=== PATIENT | male | born 1985 | race Caucasian/White ===

== ENCOUNTER 2019-12-23 13:17 | Outpatient (REF) | payer OTHER, SELFPAY | END 2019-12-23 13:18 | disposition home or self-care (01) | LOC: HO.HMGCLDS 13:17 | PROVIDERS: Visit Provider Internal Medicine | DX: Z20.828 Contact with and (suspected) exposure to other viral communicable diseases (principal) | CPT/HCPCS: 36415; 87635 ==

== ENCOUNTER → 2021-12-23 14:48 | Outpatient (BNVA) | payer SELFPAY | PROVIDERS: PCP Nurse Practitioner Family; Visit Provider Internal Medicine | DX: Z02.79 Encounter for issue of other medical certificate (principal) ==

== ENCOUNTER 2022-12-22 08:53 | Outpatient (AMB) | payer OTHER, SELFPAY ==
[2022-12-22 08:58] VITALS: BP 118/86; PULSE 70; O2SAT 98; BMI 22.4
--- NOTE | 2022-12-22 08:58 | MHC.PC.OV ---
Vital Signs 12/22/22 08:58 Height 6 ft Weight 165 lb 6 oz BMI 22.4 BP 118/86 Blood Pressure Location Rt brachial Position Sitting Pulse 70 Pulse Source Pulse Oximeter Pulse Oximetry (%) 98 Oxygen Delivery Method Room Air Intake Visit Reasons: Physical Exam Allergies No Known Allergies Allergy (Verified 12/22/22 09:23) Medication List - Last Reconciled 12/22/22 by ROMY López citalopram 20 mg PO DAILY Tobacco use date assessed: 12/22/22 Dental Screening Dental Screen Date: 12/22/22 Did you have a dental visit in the last 12 months?: Yes Did you have a dental problem in the last 6 months where you did not have access to dental care?: No Was dental information given to patient?: Patient has dentist HPI Physical Exam HPI Details Pt is here for a PE. Will order labs. [facility] Social History Housing: House Alcohol intake: current Alcohol intake frequency: a few times a month Patient Tobacco Use Status: Never used Tobacco e-Cigarette/Vaping Use: Currently Using (thc) Second Hand Smoke Exposure: No service: No Current occupational status: employed Current occupation: [employer] Current occupational exposures/hazards: Yes Cognitive needs: No Hearing needs: No Vision needs: No Review of Systems Const Denies chills and Denies fever(s) Eyes Denies blurry vision ENT Denies vertigo, Denies dizziness and Denies sore throat Card Denies chest pain at rest, Denies chest pain with activity, Denies diaphoresis, Denies dyspnea and Denies dyspnea on exertion Resp Denies cough, Denies dyspnea, Denies dyspnea on exertion and Denies wheezing GI Denies abdominal pain, Denies melena, Denies hematochezia, Denies constipation, Denies diarrhea and Denies loose stools Denies hematuria Musc Denies numbness and Denies tingling Skin/Breast Denies lesions Neuro Denies vertigo, Denies dizziness, Denies numbness and Denies tingling Psych Denies anxiety, Denies depression, Denies homicidal ideation, Denies suicidal ideation and Denies other (substance abuse) Aller/Immun Denies wheezing Physical exam (Primary Care) Vital Signs: Last Vital Signs Pulse 70 12/22/22 08:58 BP 118/86 12/22/22 08:58 Pulse Ox 98 12/22/22 08:58 Oxygen Delivery Method Room Air 12/22/22 08:58 BMI result Body Mass Index 22.4 Tobacco/Smoking Status: Tobacco use Status Tobacco use date assessed 12/22/22 12/22/22 09:04 Patient Tobacco Use Status Never used Tobacco 12/22/22 09:04 e-Cigarette/Vaping Use Currently Using (thc) 12/22/22 09:04 Const General: cooperative Nutritional Appearance: well nourished Orientation/consciousness: patient oriented x3 HENMT Other: left parietal region with fibroma Head: Yes normocephalic and Yes atraumatic Ears: TM's normal bilaterally Eyes General: appearance normal, both eyes and all related structures Alignment and Position: alignment normal and position normal Neck Neck: Yes normal visual inspection and Yes no lymphadenopathy Thyroid: Thyroid normal Resp Effort & Inspection: normal respiratory effort Auscultation: clear to auscultation bilaterally Cardio Rate: regular rate Rhythm: regular rhythm Heart sounds: S1 normal heart sound present, S2 normal heart sound present and no murmurs GI Palpation (GI): Soft to palpation and nontender Auscultation: normal bowel sounds Male General Exam: Yes normal external exam Penis: normal penis Scrotum: scrotum normal, testes descended bilaterally and no inguinal hernias Testes: no testicular mass Skin Rashes: no rashes Neuro General: patient oriented x3, moves all extremities, no focal motor deficits and deep tendon reflexes 2+ bilaterally Romberg Test: Negative Psych Appearance: grossly normal Mental Status: mental status grossly normal Speech and movement: Normal speech and movement present Affect: normal affect Attitude: cooperative Thought process: Normal thought process present Thought content: Normal thought content present Insight: Good insight present (Psych) Judgement: Good judgement present (Psych) Assessment and Plan Assessment & Plan (1) Physical exam: Code(s): Z00.00 - Encounter for general adult medical examination without abnormal findings Plan: Labs ordered Plan The patient agreed to the use of a medical record technician for this encounter. Scribed for ROMY Alexis by Gemma No medical record technician, on 12/22/2022 at 09:25 EST Orders: Orders Complete Blood Count Auto Diff Today Z00.00 - Encounter for general adult medical examination without abnormal findings TSH reflex Free T4 Today Z00.00 - Encounter for general adult medical examination without abnormal findings Lipid Panel Today Z00.00 - Encounter for general adult medical examination without abnormal findings Comprehensive [place]. Panel Fast Today Z00.00 - Encounter for general adult medical examination without abnormal findings UA CC w/rflx Micro + Cult Today Z00.00 - Encounter for general adult medical examination without abnormal findings Coding Level of Care Code Est Pt Prev Care 18-39y(86421) Diagnoses Physical exam Z00.00
== END 2022-12-22 09:36 | disposition home or self-care (01) ==
PROVIDERS: PCP Nurse Practitioner Family; Visit Provider Nurse Practitioner Family
DX: Z00.00 Encounter for general adult medical examination without abnormal findings (principal)
CPT/HCPCS: 99395

== ENCOUNTER 2023-12-11 07:39 | Outpatient (REF) | payer OTHER, SELFPAY ==
[2023-12-11 09:59] LABS: MANUAL DIFF FLAG NO
[2023-12-11 10:02] LABS: Appearance Urine Clear; Color Urine Yellow; Glucose Urine UA Negative (Negative); Leukocyte Esterase Urine Negative (Negative); Nitrite Urine Negative (Negative); Urine Blood Negative (Negative); Urine Ketones Negative (Negative); Urine Protein Negative (Neg-Trace)
[2023-12-11 10:13] LABS: Basophils Percent Auto 0.3 % (0-2); Eosinophils Absolute Auto 0.1 X10*3/uL (0.0-0.4); Eosinophils Percent Auto 1.3 % (0-4); Hematocrit 44.1 % (42.0-52.0); Hemoglobin 15.6 g/dl (14.0-18.0); Imm Gran Abs Auto 0.01 X10*3/uL (0.00-0.03); Imm Gran Pct Auto 0.3 % (0.0-0.4); Lymphocytes Absolute Auto 1.5 X10*3/uL (1.2-4.9); Lymphocytes Percent Auto 38.2 % (20-40); Mean Corpuscular HGB Conc 35.4 g/dl (31.0-36.0); Mean Corpuscular Hemoglobin 31.6 pg (27.0-33.0); Mean Corpuscular Volume 89.5 fL (80.0-98.0); Mean Platelet Volume 9.4 fL (9.4-12.4); Monocytes Absolute Auto 0.4 X10*3/uL (0.1-1.2); Monocytes Percent Auto 10.2 % (2-11); Neutrophils Absolute Auto 1.9 x10*3/uL (2.0-8.3); Neutrophils Percent Auto 49.7 % (45-73); Platelet Count 210 X10*3/uL (160-400); Red Blood Count 4.93 X10*6/uL (4.60-5.80); Red Cell Distribution Width 12.3 % (11.0-16.0); White Blood Count 3.8 X10*3/uL (4.8-10.8)
[2023-12-11 10:27] LABS: Alanine Aminotransferase 8 U/L (0-40); Albumin Level 4.3 g/dL (3.5-5.0); Alkaline Phosphatase 54 U/L (39-117); Anion Gap 9 (12-20); Aspartate Amino Transferase 18 U/L (5-37); Blood Urea Nitrogen 11 mg/dL (9-16); Calcium 9.2 mg/dL (8.4-10.2); Carbon Dioxide 30 mmol/L (22-29); Chloride 106 mmol/L (96-108); Cholesterol 160 mg/dL (<200); Estimated Glomerular Filt Rate > 60; Glucose Fasting 87 mg/dL (60-99); HDL Cholesterol 51 mg/dL (>40); LDL Cholesterol Calculated 99 mg/dL (<100); Potassium 3.9 mmol/L (3.3-5.1); Sodium 141 mmol/L (135-145); Triglycerides 52 mg/dL (<150)
[2023-12-11 10:49] LABS: TSH reflex Free T4 1.75 uIU/mL (0.32-4.0)
== END 2023-12-11 07:40 | disposition home or self-care (01) ==
LOC: HO.HMGCLDS 07:39
PROVIDERS: PCP Nurse Practitioner Family; Visit Provider Nurse Practitioner Family
DX: Z00.00 Encounter for general adult medical examination without abnormal findings (principal); D72.819 Decreased white blood cell count, unspecified
CPT/HCPCS: 36415; 80053; 80061; 81003; 84443; 85025

== ENCOUNTER → 2023-12-16 09:13 | Outpatient (BNVA) | payer SELFPAY | PROVIDERS: PCP Nurse Practitioner Family; Visit Provider Physician Assistant | DX: Z02.79 Encounter for issue of other medical certificate (principal) ==

== ENCOUNTER 2024-01-11 10:18 | Outpatient (AMB) | payer OTHER, SELFPAY ==
[2024-01-11 10:25] VITALS: BP 128/82; PULSE 76; O2SAT 98; BMI 23.5
--- NOTE | 2024-01-11 10:25 | A.OFFPC_ITS ---
Vital Signs 3 01/11/24 10:25 Height 6 ft Weight 173 lb 4 oz BMI 23.5 BP 128/82 Blood Pressure Location Rt brachial Position Sitting Pulse 76 Pulse Source Pulse Oximeter Pulse Oximetry (%) 98 Oxygen Delivery Method Room Air Intake Visit Reasons: Annual PE Intake Note: Pt is here today for his Annual PE Allergies No Known Allergies Allergy (Verified 01/11/24 11:23) Medication List - Last Reconciled 01/11/24 by ROMY López citalopram 20 mg PO DAILY Tobacco use date assessed: 01/11/24 Dental Screening Dental Screen Date: 01/11/24 Did you have a dental visit in the last 12 months?: Yes Did you have a dental problem in the last 6 months where you did not have access to dental care?: No Was dental information given to patient?: Patient has dentist HPI Annual PE 2 HPI0 Details Pt is here for a PE. Labs were already performed. Repeat CBC has been ordered due to leukopenia. Pt c/o increased anger/frustration. He does have a hx of anxiety and depression. Pt has a therapist previously but no longer does. Will have team speak with pt. Denies any SI and HI. [facility] Social History Housing: House Alcohol intake: current Alcohol intake frequency: a few times a month Patient Tobacco Use Status: Never used Tobacco e-Cigarette/Vaping Use: Currently Using (thc) Second Hand Smoke Exposure: No service: No Current occupational status: employed Current occupation: [employer] Current occupational exposures/hazards: Yes Cognitive needs: No Hearing needs: No Vision needs: No Questionnaire PHQ-9 Over the last 2 weeks, how often have you been bothered by any of the following problems? 1. Little interest or pleasure in doing things: several days 2. Feeling down, depressed, or hopeless: several days 3. Trouble falling or staying asleep, or sleeping too much: more than half the days 4. Feeling tired or having little energy: several days 5. Poor appetite or overeating: not at all 6. Feeling bad about yourself - or that you are a failure or have let yourself or your family down: several days 7. Trouble concentrating on things, such as reading the newspaper or watching television: not at all 8. Moving or speaking so slowly that other people could have noticed. Or the opposite - being so fidgety or restless that you have been moving around a lot more than usual: not at all 9. Thoughts that you would be better off or of hurting yourself in some way: not at all Total score: 6 Depression Screening Interpretation: Negative Depression Screening Done: Yes 36110 - PHQ-9 Billing: Yes (denies any SI or HI, john () to speak with pt. ) Source: Developed by Drs. Gray Humphrey, Terri Hairston, Jose Carlos Hunter and colleagues, with an educational alexandrea from [employer]. Thrive Questionnaire Date Thrive assessed: 01/11/24 I am a: Patient What is your living situation today?: I have a steady place to live Within the past 12 months, did the food you bought not last and you didn't have the money to get more?: Never true Within the past 12 months, did you worry whether your food would run out before you got money to buy more?: Never true Do you have trouble paying for medicines?: No Do you have trouble getting transportation to medical appointments?: No Do you have trouble paying your heating and electricity bill?: No Do you have trouble taking care of your child, family member or friend?: No Do you have trouble with day-to-day activities such as bathing, preparing meals, shopping, managing finances, etc.?: No Are you currently unemployed and looking for a job?: No Are you interested in more education?: No Please select the resources that you would like help with: None Currently or been in a relationship where the following occur: No concerns reported THRIVE Score: 0 AUDIT C Alcohol Use Questionnaire (AUDIT-C) 1. How often do you have a drink containing alcohol?: 4 or more times a week 2. How many drinks containing alcohol do you have on a typical day when you are drinking?: 1 or 2 3. How often do you have six or more drinks on one occasion?: Less than monthly Total Score: 5 Score Reviewed/Action Taken: Yes ZORA-7 AMB Questionnaire ZORA-7 Date ZORA - 7 assessed: 01/11/24 Feeling nervous, anxious, or on edge: 1 = Several days Not being able to stop or control worryin = Several days Worrying too much about different things: 1 = Several days Trouble relaxin = Several days Being so restless that it is hard to sit still: 1 = Several days Becoming easily annoyed or irritable: 1 = Several days Feeling afraid as if something awful might happen: 0 = Not at all Total ZORA-7 score (0-4 normal; 5-9 mild; 10-14 moderate; 15-21 severe): 6 Source: Developed by Drs. Gray Humphrey, Terri Hairston, Jose Carlos Hunter and colleagues, with an educational alexandrea from [employer]. ZORA-7 Assessment Billing ZORA-7 Assessment Tool: ZORA-7 Assessment 28192 Review of Systems Const Denies chills and Denies fever(s) Eyes Denies blurry vision ENT Denies vertigo, Denies dizziness and Denies sore throat Card Denies chest pain at rest, Denies chest pain with activity, Denies diaphoresis, Denies dyspnea and Denies dyspnea on exertion Resp Denies cough, Denies dyspnea, Denies dyspnea on exertion and Denies wheezing GI Denies abdominal pain, Denies melena, Denies hematochezia, Denies constipation, Denies diarrhea and Denies loose stools Denies hematuria Musc Denies numbness and Denies tingling Skin/Breast Denies lesions Neuro Denies vertigo, Denies dizziness, Denies numbness and Denies tingling Psych Denies anxiety, Denies depression, Denies homicidal ideation, Denies suicidal ideation and Denies other (substance abuse) Aller/Immun Denies wheezing Physical exam (Primary Care) Vital Signs: Last Vital Signs Pulse 76 01/11/24 10:25 BP 128/82 01/11/24 10:25 Pulse Ox 98 01/11/24 10:25 Oxygen Delivery Method Room Air 01/11/24 10:25 BMI result Body Mass Index 23.5 Tobacco/Smoking Status: Tobacco use Status Tobacco use date assessed 01/11/24 01/11/24 10:27 Patient Tobacco Use Status Never used Tobacco 01/11/24 10:27 e-Cigarette/Vaping Use Currently Using (thc) 01/11/24 10:27 PHQ-9: PHQ-9 Score PHQ-9: Total score 6 10/21/24 11:26 Depression Screening Interpretation: Negative Thrive Assessment: Date of Thrive Assessment Date Thrive assessed 01/11/24 01/11/24 10:27 Currently or been in a relationship where the following occur: No concerns reported Const General: cooperative Nutritional Appearance: well nourished Orientation/consciousness: patient oriented x3 HENMT Head: Yes normal to inspection, Yes normocephalic and Yes atraumatic Head images: 2 1. larger skin growth Ears: TM's normal bilaterally Eyes General: appearance normal, both eyes and all related structures Alignment and Position: alignment normal and position normal Neck Neck: Yes normal visual inspection, Yes no lymphadenopathy and Yes supple Resp Effort & Inspection: normal respiratory effort Auscultation: clear to auscultation bilaterally Cardio Rate: regular rate Rhythm: regular rhythm Heart sounds: S1 normal heart sound present, S2 normal heart sound present and no murmurs GI Palpation (GI): Soft to palpation and nontender Auscultation: normal bowel sounds Male General Exam: Yes normal external exam Penis: normal penis Scrotum: scrotum normal, testes descended bilaterally and no inguinal hernias Testes: no testicular mass Skin Other: right lateral head with large tissue/darker pigmentation singular raised lesion Rashes: no rashes Neuro General: patient oriented x3, moves all extremities, no focal motor deficits and deep tendon reflexes 2+ bilaterally Romberg Test: Negative Psych Appearance: grossly normal Mental Status: mental status grossly normal Speech and movement: Normal speech and movement present Affect: normal affect Attitude: cooperative Thought process: Normal thought process present Thought content: Normal thought content present Insight: Good insight present (Psych) Judgement: Good judgement present (Psych) Coding Level of Care Code Est Pt Prev Care 40-64y(74358) Diagnoses Physical exam Z00.00 Anxiety with depression F41.8 Leukopenia D72.819 Skin lesion L98.9 Additional Codes ZORA-7 Assessment Billing - ZORA-7 Assessment Tool: ZORA-7 Assessment 03941 ([id number]) Assessment & Plan Assessment & Plan (1) Physical exam: Code(s): Z00.00 - Encounter for general adult medical examination without abnormal findings Category: Medical Plan: Labs already performed (2) Anxiety with depression: Code(s): F41.8 - Other specified anxiety disorders Category: Medical Plan: will have john Montilla) see pt in room. Denies any si or hi (3) Leukopenia: Code(s): D72.819 - Decreased white blood cell count, unspecified Category: Medical Plan: repeating cbc (4) Skin lesion: Code(s): L98.9 - Disorder of the skin and subcutaneous tissue, unspecified Category: Medical Plan: referred to derm Plan The patient agreed to the use of a medical file clerk for this encounter. Scribed for ROMY Alexis by Gemma No medical file clerk, on 01/11/2024 at 11:05 EST. Orders: Referrals 2 Dermatology Referral L98.9 - Disorder of the skin and subcutaneous tissue, unspecified
== END 2024-01-11 11:41 | disposition home or self-care (01) ==
PROVIDERS: PCP Nurse Practitioner Family; Visit Provider Nurse Practitioner Family
DX: Z00.00 Encounter for general adult medical examination without abnormal findings (principal); F41.8 Other specified anxiety disorders; D72.819 Decreased white blood cell count, unspecified; L98.9 Disorder of the skin and subcutaneous tissue, unspecified

== ENCOUNTER → 2024-01-11 10:18 | Outpatient (BNVA) | payer OTHER, SELFPAY | PROVIDERS: PCP Nurse Practitioner Family; Visit Provider Nurse Practitioner Family | DX: Z00.01 Encounter for general adult medical examination with abnormal findings (principal); F41.8 Other specified anxiety disorders; D72.819 Decreased white blood cell count, unspecified; L98.9 Disorder of the skin and subcutaneous tissue, unspecified | CPT/HCPCS: 96127; 99396 ==

== ENCOUNTER 2024-07-11 07:16 | Outpatient (REF) | payer OTHER, SELFPAY ==
[2024-07-11 10:03] LABS: MANUAL DIFF FLAG NO
[2024-07-11 10:05] LABS: Basophils Percent Auto 0.5 % (0-2); Eosinophils Absolute Auto 0.1 X10*3/uL (0.0-0.4); Eosinophils Percent Auto 1.2 % (0-4); Hematocrit 45.1 % (42.0-52.0); Hemoglobin 15.7 g/dl (14.0-18.0); Imm Gran Abs Auto 0.02 X10*3/uL (0.00-0.03); Imm Gran Pct Auto 0.5 % (0.0-0.4); Lymphocytes Absolute Auto 1.7 X10*3/uL (1.2-4.9); Lymphocytes Percent Auto 39.2 % (20-40); Mean Corpuscular HGB Conc 34.8 g/dl (31.0-36.0); Mean Corpuscular Hemoglobin 31.2 pg (27.0-33.0); Mean Corpuscular Volume 89.7 fL (80.0-98.0); Mean Platelet Volume 9.6 fL (9.4-12.4); Monocytes Absolute Auto 0.5 X10*3/uL (0.1-1.2); Monocytes Percent Auto 10.6 % (2-11); Platelet Count 203 X10*3/uL (160-400); Red Blood Count 5.03 X10*6/uL (4.60-5.80); Red Cell Distribution Width 12.5 % (11.0-16.0); White Blood Count 4.2 X10*3/uL (4.8-10.8)
== END 2024-07-11 07:17 | disposition home or self-care (01) ==
LOC: HO.HMGCLDS 07:16
PROVIDERS: PCP Nurse Practitioner Family; Visit Provider Nurse Practitioner Family
DX: D72.819 Decreased white blood cell count, unspecified (principal)
CPT/HCPCS: 36415; 85025

== ENCOUNTER 2024-07-13 09:54 | Outpatient (AMB) | payer OTHER, SELFPAY ==
[2024-07-13 09:56] VITALS: BP 100/72; PULSE 64; RESP 16; TEMP 36.6; O2SAT 98; BMI 22.8
--- NOTE | 2024-07-13 09:56 | A.OFFPC_ITS ---
Vital Signs 07/13/24 09:56 Height 6 ft Weight 168 lb BMI 22.8 BP 100/72 Blood Pressure Location Lt brachial Position Sitting Respiration 16 Pulse 64 Pulse Source Pulse Oximeter Temp 97.9 F Temp Source Oral Pulse Oximetry (%) 98 Intake Visit Reasons: 6 month follow up Intake Note: Pt is here today for 6 Allergies No Known Allergies Allergy (Verified 01/11/24 11:23) Tobacco use date assessed: 07/13/24 Dental Screening Dental Screen Date: 07/13/24 Did you have a dental visit in the last 12 months?: Yes Did you have a dental problem in the last 6 months where you did not have access to dental care?: No Was dental information given to patient?: Patient has dentist HPI 6 month follow up HPI Details Chief Complaint Persistent frustration and stress related to work and parenting responsibilitie s. History of Present Illness The patient is a 39-year-old male presenting with anxiety and depression. 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 He denies suicidal or homicidal ideation and is currently on citalopram 20 mg. He attends therapy every two weeks, which he appreciates for its calming effects. At home, he balances being a dedicated father to a [id number], which he finds challenging but important. He also acknowledges the support from his spouse, which assists in managing his stress levels. Social History - Employment: Works in the construction industry as a talented vanegas, experiences frustrations due to the quality of work by other subcontractors. - Family Status: with a loving s pouse and a [id number] child. - Stressors: Balances work-related stres s and parenting responsibilities. Health Maintenance Review of Systems - Psychiatric: Reports anxiety and depre ssion; Denies suicidal ideation, denies homicidal ideation. - Neurological: Reports frustration rela bryan to work. Physical Exam General: Cooperative, healthy appearing, comfortable, no acute distress and well developed Orientation: Patient oriented x3 Limitations: No limitations Head: Normal to inspection Ears: Hearing grossly normal bilaterally Nose: Normal external nose present Face and sinus: Normal facial exam Eyes: Appearance normal, both eyes and all related structures Neck: Normal visual inspection and Yes full ROM Respiratory: Normal respiratory effort and able to speak in complete sentences. Clear to auscultation bilaterally Cardiovascular: Regular rate and rhythm. Normal S1 and S2 GI: Normal to inspection. Soft to palpation and nontender Skin: No rashes or lesions noted Neuro: Patient oriented x3 Extremities: Normal to inspection Results Plan The current treatment of citalopram 20 mg will be maintained, with the addition of low-dose buspirone to further manage the patient's anxiety symptoms. Continuation of biweekly therapy sessions is encouraged. It is essential for the patient to openly communicate with his supervisor [employer] regarding work-related frustrations. A follow-up appointment is planned in two months through telehealth to evaluate the efficacy of the treatment regimen and overall progress. Discussion Notes We discussed the current treatment plan for the patient's anxiety and depression, acknowledging his ongoing frustrations at work and pressures at home contributing to his symptoms. The addition of buspirone at a low dose was introduced to help manage anxiety, complementing the citalopram already prescribed. We also emphasized the importance of regular therapy sessions, as these have a positive impact on the patient. The advantages of open communication with his employer about workplace stressors were advised. We scheduled a telehealth follow-up appointment in two months to evaluate the effectiveness of the treatment and progress being made. All treatment options, risks, and the patient's preferences were discussed. Patient Instructions - Continue taking citalopram 20 mg as pr escribed. - Start the prescribed low-dose buspiron e daily. - Keep attending therapy sessions every two weeks. - Talk openly with your boss about work stressors. - [facility] - Call if you feel worse or have urgent concerns. [facility] Social History Housing: House Alcohol intake: current Alcohol intake frequency: a few times a month Patient Tobacco Use Status: Never used Tobacco e-Cigarette/Vaping Use: Former Use (thc) Second Hand Smoke Exposure: No service: No Current occupational status: employed Current occupation: [employer] Current occupational exposures/hazards: Yes Cognitive needs: No Hearing needs: No Vision needs: No Questionnaire PHQ-9 Over the last 2 weeks, how often have you been bothered by any of the following problems? 1. Little interest or pleasure in doing things: more than half the days 2. Feeling down, depressed, or hopeless: more than half the days 3. Trouble falling or staying asleep, or sleeping too much: more than half the days 4. Feeling tired or having little energy: more than half the days 5. Poor appetite or overeating: not at all 6. Feeling bad about yourself - or that you are a failure or have let yourself or your family down: more than half the days 7. Trouble concentrating on things, such as reading the newspaper or watching television: more than half the days 8. Moving or speaking so slowly that other people could have noticed. Or the opposite - being so fidgety or restless that you have been moving around a lot more than usual: not at all 9. Thoughts that you would be better off or of hurting yourself in some way: not at all Total score: 12 Depression Screening Interpretation: Positive Depression Screening Follow-up: Existing condition, In treatment and New Medication prescribed Depression Screening Done: Yes 49537 - PHQ-9 Billing: Yes Source: Developed by Drs. Gray Humphrey, Terri Hairston, Jose Carlos Hunter and colleagues, with an educational alexandrea from [employer]. Thrive Questionnaire Date Thrive assessed: 07/13/24 I am a: Patient What is your living situation today?: I have a steady place to live Within the past 12 months, did the food you bought not last and you didn't have the money to get more?: Never true Within the past 12 months, did you worry whether your food would run out before you got money to buy more?: Never true Do you have trouble paying for medicines?: No Do you have trouble getting transportation to medical appointments?: No Do you have trouble paying your heating and electricity bill?: No Do you have trouble taking care of your child, family member or friend?: No Do you have trouble with day-to-day activities such as bathing, preparing meals, shopping, managing finances, etc.?: No Are you currently unemployed and looking for a job?: No Are you interested in more education?: No Please select the resources that you would like help with: None Currently or been in a relationship where the following occur: No concerns reported THRIVE Score: 0 AUDIT C Alcohol Use Questionnaire (AUDIT-C) 1. How often do you have a drink containing alcohol?: 4 or more times a week 2. How many drinks containing alcohol do you have on a typical day when you are drinking?: 1 or 2 3. How often do you have six or more drinks on one occasion?: Less than monthly Total Score: 5 ZORA-7 AMB Questionnaire ZORA-7 Date ZORA - 7 assessed: 07/13/24 Feeling nervous, anxious, or on edge: 2 = More than half the days Not being able to stop or control worryin = More than half the days Worrying too much about different things: 2 = More than half the days Trouble relaxin = More than half the days Being so restless that it is hard to sit still: 0 = Not at all Becoming easily annoyed or irritable: 2 = More than half the days Feeling afraid as if something awful might happen: 0 = Not at all Total ZORA-7 score (0-4 normal; 5-9 mild; 10-14 moderate; 15-21 severe): 10 Source: Developed by Drs. Gray Humphrey, Terri Hairston, Jose Carlos Hunter and colleagues, with an educational alexandrea from [employer]. ZORA-7 Assessment Billing ZORA-7 Assessment Tool: ZORA-7 Assessment 89426 (denies any si or hi, therapist and new med prescribed) Physical exam (Primary Care) Vital Signs: Last Vital Signs Temp 97.9 F 07/13/24 09:56 Pulse 64 07/13/24 09:56 Resp 16 07/13/24 09:56 BP 100/72 07/13/24 09:56 Pulse Ox 98 07/13/24 09:56 BMI result Body Mass Index 22.8 Tobacco/Smoking Status: Tobacco use Status Tobacco use date assessed 07/13/24 07/13/24 10:00 Patient Tobacco Use Status Never used Tobacco 07/13/24 09:56 e-Cigarette/Vaping Use Former Use (thc) 07/13/24 10:00 PHQ-9: PHQ-9 Score PHQ-9: Total score 12 07/13/24 09:56 Depression Screening Interpretation: Positive Depression Screening Follow-up: Existing condition, In treatment and New Medication prescribed Thrive Assessment: Date of Thrive Assessment Date Thrive assessed 07/13/24 07/13/24 10:00 Currently or been in a relationship where the following occur: No concerns reported Coding Level of Care Code Est Pt Level 3 (16777) Diagnoses Anxiety with depression F41.8 Additional Codes PHQ-9 - 16780 - PHQ-9 Billing: Yes ([id number]) ZORA-7 Assessment Billing - ZORA-7 Assessment Tool: ZORA-7 Assessment 51942 ([id number]) Assessment & Plan Assessment & Plan (1) Anxiety with depression: Code(s): F41.8 - Other specified anxiety disorders Category: Medical Plan . Orders: Orders Lipid Panel Today F41.8 - Other specified anxiety disorders UA CC w/rflx Micro + Cult Today F41.8 - Other specified anxiety disorders Complete Blood Count Auto Diff Today F41.8 - Other specified anxiety disorders Comprehensive [place]. Panel Fast Today F41.8 - Other specified anxiety disorders TSH reflex Free T4 Today F41.8 - Other specified anxiety disorders Medications: New buspirone 5 mg PO BID 60 tabs 2RF 30 days
--- OUTSIDE RECORDS SUMMARY | 2024-07-13 11:22 | XMS_ITS ---
Author Name [facility] Organization Unknown Care Team Organization Name Specialty Phone Email Start Date End [facility]
== END 2024-07-13 10:39 | disposition home or self-care (01) ==
LOC: HO.HMCC 09:55
PROVIDERS: PCP Nurse Practitioner Family; Visit Provider Nurse Practitioner Family
DX: F41.8 Other specified anxiety disorders (principal)

== ENCOUNTER → 2024-07-13 09:54 | Outpatient (BNVA) | payer OTHER, SELFPAY | PROVIDERS: PCP Nurse Practitioner Family; Visit Provider Nurse Practitioner Family | DX: F41.8 Other specified anxiety disorders (principal); Z79.899 Other long term (current) drug therapy | CPT/HCPCS: 96127 ==

== ENCOUNTER 2024-09-12 07:53 | Outpatient (AMB) | payer OTHER, SELFPAY ==
--- NOTE | 2024-09-12 07:35 | MHC.PC.OV ---
Intake Visit Reasons: 2 month follow up Allergies No Known Allergies Allergy (Verified 01/11/24 11:23) Medication List - Last Reconciled 09/12/24 [facility] buspirone 7.5 mg PO BID 30 days citalopram 20 mg PO DAILY Tobacco use date assessed: 07/13/24 Dental Screening Dental Screen Date: 07/13/24 HPI 2 month follow up HPI Details History of Present Illness The patient is a 39-year-old male presenting with anxiety and depression. He reports experiencing anxiety and depression, with anxiety being more prominent. The patient has been on citalopram 20 mg and recently started on buspirone 5 mg twice daily, which will be increased to 7.5 mg twice daily. He has a therapist with whom he communicates well and reports improvement in his condition. The patient denies any suicidal or homicidal ideation and reports no chest pain, shortness of breath, headache, or blurred vision. reports doing quite well with use of buspirone. Review of Systems - Psychiatric: Reports anxiety and depression. Denies suicidal or homicidal ideation. - Cardiovascular: Denies chest pain. - Respiratory: Denies shortness of breath. - Neurological: Denies headache or blurred vision. Plan The patient will continue with citalopram 20 mg daily and buspirone, which has been increased to 7.5 mg twice daily to manage anxiety and depression. He is advised to maintain regular therapy sessions, as he reports positive outcomes from these interactions. A follow-up appointment is scheduled in two months to assess the effectiveness of the medication adjustment and overall mental health status. Discussion Notes I discussed with the patient the current management of his anxiety and depression, emphasizing the importance of medication adherence and regular therapy sessions. We agreed to increase the buspirone dosage to 7.5 mg twice daily and to follow up in two months to evaluate progress. Patient Instructions - Continue taking citalopram 40 mg daily. - Take buspirone 7.5 mg twice daily. - Attend regular therapy sessions. - Follow up in two months. [facility] Social History Housing: House Alcohol intake: current Alcohol intake frequency: a few times a month Patient Tobacco Use Status: Never used Tobacco e-Cigarette/Vaping Use: Former Use (thc) Second Hand Smoke Exposure: No service: No Current occupational status: employed Current occupation: [employer] Current occupational exposures/hazards: Yes Cognitive needs: No Hearing needs: No Vision needs: No Questionnaire Thrive Questionnaire Date Thrive assessed: 07/13/24 ZORA-7 AMB Questionnaire ZORA-7 Date ZORA - 7 assessed: 07/13/24 Source: Developed by Drs. Gray Humphrey, Terri Hairston, Jose Carlos Hunter and colleagues, with an educational alexandrea from [employer]. Physical exam (Primary Care) Tobacco/Smoking Status: Tobacco use Status Tobacco use date assessed 07/13/24 07/13/24 10:00 Patient Tobacco Use Status Never used Tobacco 07/13/24 09:56 e-Cigarette/Vaping Use Former Use 07/13/24 10:00 Thrive Assessment: Date of Thrive Assessment Date Thrive assessed 07/13/24 07/13/24 10:00 Telehealth Telehealth Telehealth Platform: [employer] Location of provider rendering services: practice address Location of patient: address on file Patient Identification confirmed using: Name, : Yes Telehealth method: video Patient verbally consented to treatment: Yes Patient verbally consented to billing insurance company: Yes Patient informed of any privacy concerns related to visit: Yes Minutes spent on Phone/Video with Pt.: 12 Coding Level of Care Code Tele Est Pt Level 3 (28287) Diagnoses Anxiety with depression F41.8 Assessment & Plan Assessment & Plan (1) Anxiety with depression: Code(s): F41.8 - Other specified anxiety disorders Category: Medical Plan . Medications: Changed From buspirone 5 mg PO BID 60 tabs 2RF 30 days To buspirone 7.5 mg PO BID 60 tabs 2RF 30 days
== END 2024-09-12 07:54 | disposition home or self-care (01) ==
LOC: HO.HMCC 07:53
PROVIDERS: PCP Nurse Practitioner Family; Visit Provider Nurse Practitioner Family
DX: F41.8 Other specified anxiety disorders (principal)

== ENCOUNTER → 2024-09-12 07:53 | Outpatient (BNVA) | payer OTHER, SELFPAY | PROVIDERS: PCP Nurse Practitioner Family; Visit Provider Nurse Practitioner Family | DX: Z13.89 Encounter for screening for other disorder (principal); F41.8 Other specified anxiety disorders ==

== ENCOUNTER 2025-02-22 07:43 | Outpatient (REF) | payer OTHER, SELFPAY ==
--- OUTSIDE RECORDS SUMMARY | 2025-02-22 07:47 | XMS_ITS ---
Author Name [facility] Organization Unknown Care Team Organization Name Specialty Phone Email Start Date End [facility]
[2025-02-22 10:29] LABS: MANUAL DIFF FLAG NO
[2025-02-22 10:33] LABS: Hematocrit 43.8 % (42.0-52.0); Hemoglobin 15.3 g/dl (14.0-18.0); Imm Gran Abs Auto 0.04 X10*3/uL (0.00-0.03); Imm Gran Pct Auto 1.0 % (0.0-0.4); Lymphocytes Absolute Auto 1.4 X10*3/uL (1.2-4.9); Mean Corpuscular HGB Conc 34.9 g/dl (31.0-36.0); Mean Corpuscular Hemoglobin 30.8 pg (27.0-33.0); Mean Corpuscular Volume 88.1 fL (80.0-98.0); NRBC Abs Auto 0.000 X10*3/uL (0.0-0.012); NRBC Pct Auto 0.0 /100WBC (0.0-0.2); Platelet Count 242 X10*3/uL (160-400); Red Blood Count 4.97 X10*6/uL (4.60-5.80); White Blood Count 4.2 X10*3/uL (4.8-10.8)
[2025-02-22 11:11] LABS: Alanine Aminotransferase 10 U/L (0-40); Albumin Level 4.5 g/dL (3.5-5.0); Alkaline Phosphatase 63 U/L (39-117); Anion Gap 12 (12-20); Aspartate Amino Transferase 24 U/L (5-37); Blood Urea Nitrogen 14 mg/dL (9-16); Calcium 9.1 mg/dL (8.4-10.2); Carbon Dioxide 28 mmol/L (22-29); Chloride 106 mmol/L (96-108); Cholesterol 139 mg/dL (<200); Estimated Glomerular Filt Rate > 60; HDL Cholesterol 40 mg/dL (>40); Potassium 4.0 mmol/L (3.3-5.1); Sodium 142 mmol/L (135-145); Total Protein 6.9 g/dL (6.5-8.0); Triglycerides 36 mg/dL (<150)
[2025-02-22 11:19] LABS: Appearance Urine Hazy; Glucose Urine UA Negative (Negative); PH 6.5 (5.0-9.0); Specific Gravity - Urine >= 1.030 (1.005-1.025)
== END 2025-02-22 07:44 | disposition home or self-care (01) ==
LOC: HO.HMGCLDS 07:43
PROVIDERS: PCP Nurse Practitioner Family; Visit Provider Nurse Practitioner Family
DX: F41.8 Other specified anxiety disorders (principal); D72.819 Decreased white blood cell count, unspecified; L98.9 Disorder of the skin and subcutaneous tissue, unspecified
CPT/HCPCS: 36415; 80053; 80061; 81003; 84443; 85025; 96127

== ENCOUNTER 2025-02-22 10:44 | Outpatient (AMB) | payer OTHER, SELFPAY ==
[2025-02-22 11:10] VITALS: BP 124/70; PULSE 61; RESP 16; O2SAT 96; BMI 24.1
--- NOTE | 2025-02-22 11:10 | MHC.PC.OV ---
Vital Signs 02/22/25 11:10 Height 6 ft Weight 178 lb BMI 24.1 BP 124/70 Blood Pressure Location Lt brachial Position Sitting Respiration 16 Pulse 61 Pulse Source Pulse Oximeter Pulse Oximetry (%) 96 Oxygen Delivery Method Room Air Intake Visit Reasons: Annual PE Irrigationist Required: No Allergies No Known Allergies Allergy (Verified 02/22/25 11:51) Medication List - Last Reconciled 02/22/25 [facility] buspirone 7.5 mg PO BID 30 days citalopram 20 mg PO DAILY Tobacco use date assessed: 02/22/25 Dental Screening Dental Screen Date: 02/22/25 Did you have a dental visit in the last 12 months?: Yes Was dental information given to patient?: Patient has dentist HPI Annual PE HPI Details History of Present Illness The patient is a 39 year old individual presenting for a physical exam. The patient reports having a skin lesion for many years, which has not changed in size or pigmentation. A referral to dermatology was made in the past, but the patient has not yet followed up. Laboratory results show a slight leukopenia, which has been a consistent trend for the patient. Health Maintenance - The patient is here for a physical exam. - Laboratory studies have been performed. Social History - The patient sees a therapist on a regular basis. Review of Systems - Cardiovascular: Denies chest pain or shortness of breath. - Gastrointestinal: Denies abdominal pain, blood in stool, constipation, or diarrhea. - Genitourinary: Denies any urinary symptoms. - Psychiatric: Denies suicidal or homicidal ideation. Physical Exam General: Cooperative, healthy appearing, comfortable, no acute distress and well developed Orientation: Patient oriented x3 Limitations: No limitations Head: Normal to inspection Ears: Hearing grossly normal bilaterally Nose: Normal external nose present Face and sinus: Normal facial exam Eyes: Appearance normal, both eyes and all related structures Neck: Normal visual inspection and Yes full ROM Respiratory: Normal respiratory effort and able to speak in complete sentences. Clear to auscultation bilaterally Cardiovascular: Regular rate and rhythm. Normal S1 and S2 GI: Normal to inspection. Soft to palpation and nontender : testicles without masses/lesions and no hernias appreciated Skin: Large skin lesion on the temporal skull right side Neuro: Patient oriented x3 Extremities: Normal to inspection Results - Labs: Recent labs showed a slight leukopenia with a white blood cell count of 4.2, which is consistent with the patient's previous trends. - Overall lab findings were otherwise within normal limits. Plan 1. Leukopenia The patient has a slight leukopenia with a WBC of 4.2. As this is a stable finding for the patient, we will continue to monitor. 2. Skin Lesion Of Head The patient has a large skin lesion on the right temporal skull, which the patient reports has been present for many years without changes in size or pigmentation. A previous referral to dermatology was not followed up on. The referral to dermatology for evaluation is reiterated. 3. PE Discussion Notes I discussed the patient's overall good health and impressive lab results. We reviewed the slight, trending leukopenia, which is considered a benign finding for the patient at this time. I addressed the large skin lesion on the right temporal skull and reiterated the previous recommendation to follow up with dermatology for evaluation, which the patient has not yet done. Patient Instructions - Please follow up with a vp & general counsel for evaluation of the skin lesion on your scalp, as we discussed. [facility] Social History Housing: House Alcohol intake: current Alcohol intake frequency: a few times a month Patient Tobacco Use Status: Never used Tobacco e-Cigarette/Vaping Use: Former Use (thc) Second Hand Smoke Exposure: No service: No Current occupational status: employed Current occupation: [employer] Current occupational exposures/hazards: Yes Cognitive needs: No Hearing needs: No Vision needs: No Questionnaire PHQ-9 Over the last 2 weeks, how often have you been bothered by any of the following problems? 1. Little interest or pleasure in doing things: not at all 2. Feeling down, depressed, or hopeless: not at all 3. Trouble falling or staying asleep, or sleeping too much: not at all 4. Feeling tired or having little energy: not at all 5. Poor appetite or overeating: not at all 6. Feeling bad about yourself - or that you are a failure or have let yourself or your family down: not at all 7. Trouble concentrating on things, such as reading the newspaper or watching television: not at all 8. Moving or speaking so slowly that other people could have noticed. Or the opposite - being so fidgety or restless that you have been moving around a lot more than usual: not at all 9. Thoughts that you would be better off or of hurting yourself in some way: not at all Total score: 0 Depression Screening Interpretation: Positive Depression Screening Follow-up: Existing condition, In treatment and New Medication prescribed Depression Screening Done: Yes 49008 - PHQ-9 Billing: Yes Source: Developed by Drs. Gray Humphrey, Terri Hairston, Jose Carlos Hunter and colleagues, with an educational alexandrea from [employer]. Thrive Questionnaire Date Thrive assessed: 07/13/24 I am a: Patient What is your living situation today?: I have a steady place to live Within the past 12 months, did the food you bought not last and you didn't have the money to get more?: Never true Within the past 12 months, did you worry whether your food would run out before you got money to buy more?: Never true Do you have trouble paying for medicines?: No Do you have trouble getting transportation to medical appointments?: No Do you have trouble paying your heating and electricity bill?: No Do you have trouble taking care of your child, family member or friend?: No Do you have trouble with day-to-day activities such as bathing, preparing meals, shopping, managing finances, etc.?: No Are you currently unemployed and looking for a job?: No Are you interested in more education?: No Please select the resources that you would like help with: None Currently or been in a relationship where the following occur: No concerns reported THRIVE Score: 0 ZORA-7 AMB Questionnaire ZORA-7 Date ZORA - 7 assessed: 02/22/25 Feeling nervous, anxious, or on edge: 0 = Not at all Not being able to stop or control worryin = Not at all Worrying too much about different things: 0 = Not at all Trouble relaxin = Not at all Being so restless that it is hard to sit still: 0 = Not at all Becoming easily annoyed or irritable: 0 = Not at all Feeling afraid as if something awful might happen: 0 = Not at all Total ZORA-7 score (0-4 normal; 5-9 mild; 10-14 moderate; 15-21 severe): 0 Source: Developed by Doug Leónet B.W. Yovanny, Jose Carlos Hunter and colleagues, with an educational alexandrea from [employer] ZORA-7 Assessment Billing ZORA-7 Assessment Tool: ZORA-7 Assessment 60516 Physical exam (Primary Care) Vital Signs: Last Vital Signs Pulse 61 02/22/25 11:10 Resp 16 02/22/25 11:10 BP 124/70 02/22/25 11:10 Pulse Ox 96 02/22/25 11:10 Oxygen Delivery Method Room Air 02/22/25 11:10 BMI result Body Mass Index 24.1 Tobacco/Smoking Status: Tobacco use Status Tobacco use date assessed 02/22/25 02/22/25 11:17 Patient Tobacco Use Status Never used Tobacco 02/22/25 11:17 e-Cigarette/Vaping Use Former Use (thc) 02/22/25 11:17 PHQ-9: PHQ-9 Score PHQ-9: Total score 12 02/22/25 11:17 Depression Screening Interpretation: Positive Depression Screening Follow-up: Existing condition, In treatment and New Medication prescribed Thrive Assessment: Date of Thrive Assessment Date Thrive assessed 07/13/24 02/22/25 11:17 Currently or been in a relationship where the following occur: No concerns reported Coding Level of Care Code Est Pt Prev Care 40-64y(73238) Diagnoses Physical exam Z00. Scalp lesion L98.9 Leukopenia D72.819 Additional Codes ZORA-7 Assessment Billing - ZORA-7 Assessment Tool: ZORA-7 Assessment 58335 ([id number]) PHQ-9 - 96053 - PHQ-9 Billing: Yes ([id number]) Assessment & Plan Assessment & Plan (1) Physical exam: Code(s): Z00.00 - Encounter for general adult medical examination without abnormal findings Category: Medical (2) Scalp lesion: Code(s): L98.9 - Disorder of the skin and subcutaneous tissue, unspecified Category: Medical (3) Leukopenia: Code(s): D72.819 - Decreased white blood cell count, unspecified Category: Medical Plan . Orders: Orders Complete Blood Count Auto Diff 1 Year Z00.00 - Encounter for general adult medical examination without abnormal findings TSH reflex Free T4 1 Year Z00.00 - Encounter for general adult medical examination without abnormal findings UA CC w/rflx Micro + Cult 1 Year Z00.00 - Encounter for general adult medical examination without abnormal findings Comprehensive Barnett. Panel Fast 1 Year Z00.00 - Encounter for general adult medical examination without abnormal findings Lipid Panel 1 Year Z00.00 - Encounter for general adult medical examination without abnormal findings
== END 2025-02-22 11:49 | disposition home or self-care (01) ==
LOC: HO.HMCC 10:45
PROVIDERS: PCP Nurse Practitioner Family; Visit Provider Nurse Practitioner Family
DX: Z00.00 Encounter for general adult medical examination without abnormal findings (principal); L98.9 Disorder of the skin and subcutaneous tissue, unspecified; D72.819 Decreased white blood cell count, unspecified